=== PATIENT | female | born 1970 | race Caucasian/White ===

== ENCOUNTER 2019-05-26 04:39 | Emergency (ER) | payer MEDICAID ==
[~2019-05-26] VITALS: Ht 170.2 cm; Wt 80.1 kg
[2019-05-26 04:43] VITALS: BP 170/115
--- NOTE | 2019-05-26 05:05 | NUR ---
FIRST CONTACT WITH PT. PT STATES THAT SHE CURRENTLY HAS 3 LARGE BOILS UNDER HER ARM, THAT HAS BEEN THERE X 2 DAYS. PT TRYING WARM COMPRESSES AND OINTMENTS WITH NO RELIEF. PT'S AOX4. RESPS EVEN AND UNLABORED.
--- NOTE | 2019-05-26 05:22 | NUR ---
pt given to dc instructions and scripts. pt educated regarding dc medications. pt's aox4. resps even and unlabored. no acute distress at dc.
== END 2019-05-26 05:22 | disposition home or self-care (01) ==
LOC: ED 05:05
DX: L02.412 Cutaneous abscess of left axilla (principal); I10 Essential (primary) hypertension; F17.200 Nicotine dependence, unspecified, uncomplicated
CPT/HCPCS: 99283

== ENCOUNTER 2020-02-01 23:37 | Emergency (ER) | payer MEDICAID ==
[~2020-02-01] VITALS: Ht 170.2 cm; Wt 80.0 kg
[2020-02-02] MEDS ORDERED: SODIUM CHLORIDE FLUSH 10ML SYR IVF ONE (01:00)
[2020-02-02] MEDS ORDERED: SODIUM CHLORIDE 0.9% 1,000ML IVBOLUS ONE (01:00)
[2020-02-02] MEDS ORDERED: ONDANSETRON 2MG/ML, 2ML IVPush ONE (01:00)
--- NOTE | 2020-02-02 02:00 | NUR ---
CALLED FOR ROOM, NO ANSWER
--- NOTE | 2020-02-02 02:19 | NUR ---
PT WALKED TO ROOM FROM LOBBY AT THIS TIME
[2020-02-02] MEDS ORDERED: ONDANSETRON 2MG/ML, 2ML ONE (02:50)
[2020-02-02] MEDS ORDERED: DEXAMETHASONE 4 MG TABLET PO ONE (03:00)
[2020-02-02] MEDS ORDERED: DEXAMETHASONE 4 MG TABLET ONE (03:03)
[2020-02-02 03:46] VITALS: BP 145/85
== END 2020-02-02 03:48 | disposition home or self-care (01) ==
LOC: ED 02-02 03:00
DX: J02.8 Acute pharyngitis due to other specified organisms (principal); B97.89 Other viral agents as the cause of diseases classified elsewhere; I10 Essential (primary) hypertension; R49.0 Dysphonia; F17.200 Nicotine dependence, unspecified, uncomplicated
CPT/HCPCS: 71046; 99283

== ENCOUNTER 2020-05-11 18:39 | Emergency (ER) | payer MEDICAID ==
[~2020-05-11] VITALS: Ht 170.2 cm; Wt 83.8 kg
[2020-05-11 18:43] VITALS: BP 177/98
== END 2020-05-11 19:46 | disposition home or self-care (01) ==
LOC: ED 19:40
DX: H57.13 Ocular pain, bilateral (principal); H10.233 Serous conjunctivitis, except viral, bilateral; F17.200 Nicotine dependence, unspecified, uncomplicated
CPT/HCPCS: 99283

== ENCOUNTER 2020-05-25 00:57 | Emergency (ER) | payer MEDICAID ==
[~2020-05-25] VITALS: Ht 170.2 cm; Wt 84.0 kg
[2020-05-25 01:52] LABS: BASOPHILS # (AUTO) 0.01 x10^3/uL (0-0.1); BASOPHILS % (AUTO) 0 % (0-1); EOSINOPHILS # (AUTO) 0.23 x10^3/uL (0-0.4); EOSINOPHILS % (AUTO) 2 % (1-7); LYMPHOCYTES # (AUTO) 1.39 x10^3/uL (1-3.4); LYMPHOCYTES % (AUTO) 13 % (22-44); MD NO; MEAN CORPUSCULAR HEMOGLOBIN 29.5 pg (27.0-34.8); MEAN CORPUSCULAR HGB CONC 33.7 g/dL (32.4-35.8); MEAN CORPUSCULAR VOLUME 87.8 fL (80-100); MEAN PLATELET VOLUME 8.7 fL (7.4-10.4); MONOCYTES # (AUTO) 0.29 x10^3/uL (0.2-0.8); MONOCYTES % (AUTO) 3 % (2-9); NEUTROPHILS # (AUTO) 9.13 x10^3/uL (1.8-6.8); NEUTROPHILS % (AUTO) 83 % (42-75); PLATELET COUNT 371 x10^3/uL (130-400); RED BLOOD COUNT 6.55 x10^6/uL (3.82-5.3); RED CELL DISTRIBUTION WIDTH 13.2 % (9.6-15.2)
[2020-05-25 01:53] LABS: ANION GAP 8 mmol/L (5-15); CALCIUM 9.4 mg/dL (8.5-10.1); CHLORIDE 108 mmol/L (98-107); CREATININE 1.16 mg/dL (0.55-1.02)
[2020-05-25] MEDS ORDERED: MORPHINE SULFATE 4 MG/ML, 1ML IVPush PRN (03:30)
[2020-05-25] MEDS ORDERED: SODIUM CHLORIDE FLUSH 10ML SYR IVF ONE (03:30)
[2020-05-25] MEDS ORDERED: SODIUM CHLORIDE 0.9% 1,000ML IVBOLUS ONE (03:30)
[2020-05-25] MEDS ORDERED: PROMETHAZINE 25 MG/ML, 1ML IM ONE (03:30)
[2020-05-25] MEDS ORDERED: ONDANSETRON 2MG/ML, 2ML IVPush ONE (03:30)
[2020-05-25] MEDS ORDERED: ONDANSETRON 2MG/ML, 2ML ONE (03:33)
[2020-05-25 03:46] LABS: ALANINE AMINOTRANSFERASE 26 U/L (12-78); ALBUMIN 3.8 g/dL (3.4-5.0)
[2020-05-25 03:47] LABS: ALKALINE PHOSPHATASE 124 U/L (45-117); BILIRUBIN,TOTAL 0.5 mg/dL (0.2-1.0); TOTAL PROTEIN 8.2 g/dL (6.4-8.2)
[2020-05-25 03:49] VITALS: BP 150/97
[2020-05-25 03:52] LABS: BILIRUBIN, DIRECT < 0.1 mg/dL (0.1-0.2); BILIRUBIN,INDIRECT 0.4 mg/dL (0.0-2.0)
--- NOTE | 2020-05-25 03:55 | NUR ---
PT C/O N/V/D X 2 DAYS. PIV PLACED AND PT MEDICATED FOR NAUSEA. PT OFFERED PAIN MEDICATION AND PT REFUSED.
[2020-05-25 04:10] LABS: MICROSCOPIC INDICATED
[2020-05-25] MEDS ORDERED: OMNIPAQUE 350 MG/ML, 100ML BOTTLE ONE (04:27)
[2020-05-25] MEDS ORDERED: CEFTRIAXONE PMX 1GM/50ML 50 ML IV ONE (04:30)
== END 2020-05-25 05:22 | disposition home or self-care (01) ==
LOC: ED 05:21
DX: N30.00 Acute cystitis without hematuria (principal); K52.9 Noninfective gastroenteritis and colitis, unspecified; R11.2 Nausea with vomiting, unspecified; R10.32 Left lower quadrant pain; R10.12 Left upper quadrant pain; F17.210 Nicotine dependence, cigarettes, uncomplicated; I10 Essential (primary) hypertension; Z90.49 Acquired absence of other specified parts of digestive tract
CPT/HCPCS: 36415; 74177; 80048; 80076; 81001; 82247; 82248; 83690; 85025; 87077; 87086; 96374; 99285; 99406; J2405; J7030; Q9967; 87186